=== PATIENT | female | born 2000 | race Caucasian/White ===

== ENCOUNTER 2022-05-19 15:10 | Inpatient (IN) | payer SELFPAY ==
[2022-05-19] VITALS (11 sets, daily range): BP systolic 104–129; BP diastolic 54–73; PULSE 57–75; TEMP 97.8–98.2
[~2022-05-19] VITALS: Ht 162.6 cm; Wt 65.9 kg
--- NOTE | 2022-05-19 15:21 | NUR ---
Presents to L&D for spontaneous labor. Note patient visibly uncomfortable, speaks no Somali. Per her records her language is icelandic. Will obtain access to hourly sign language interpreter service.
--- NOTE | 2022-05-19 15:25 | NUR ---
Initial SVE 6-7/90/0, note clear fluid leaking with exam.
--- NOTE | 2022-05-19 15:35 | NUR ---
Involuntary pushing efforts noted.
--- NOTE | 2022-05-19 15:40 | NUR ---
Now speaking to patient through hospital telegraphic service dispatcher service. Patient reports SROM @ 1400. Denies any drug allergies, or any complications with previous deliveries. Reports she [place] of [place] 3 year [place], but that he does not see a doctor or mechanical insulator. Gives verbal consent for Hepatitis B, Erythromycin, and Vit. K. Declines epidural.
--- NOTE | 2022-05-19 15:50 | NUR ---
Repeat SVE, after patient continues involuntary pushing efforts despite instruction to try not to. called to come to hospital for delivery @ 4759.
--- NOTE | 2022-05-19 16:07 | NUR ---
here for delivery.
--- NOTE | 2022-05-19 16:11 | NUR ---
Spontaneous delivery of head by , shoulders rapidly follow. Spontaneous vaginal delivery of female infant at 1611. Note parts interpreter remains online entire time through delivery and after.
--- NOTE | 2022-05-19 16:13 | NUR ---
Spontaneous vaginal delivery of placenta by . Pit bolus begun immediately following @ 333mU/min. 2nd degree laceration repaired under local anesthetic administered by with 2-[address]-1. Patient tolerates well.
[2022-05-19 16:36] LABS: BASO % 0.4 % (0.0-2.0); EOS # 0.1 K/mm3 (0.0-0.7); EOS % 0.7 % (0.0-4.0); GRAN # 7.1 K/mm3 (1.4-6.5); GRAN % 71.6 % (42.2-75.2); HEMOGLOBIN 13.1 g/dl (12.5-16.0); LYMPH # 1.9 K/mm3 (1.2-3.4); LYMPH % 19.1 % (20.0-51.0); MEAN CELL VOLUME 83 fl (80.0-100.0); MEAN CORPUSCULAR HEMOGLOBIN 29 pg (27-31); MEAN CORPUSCULAR HGB CONC 35 g/dl (33.0-37.0); MEAN PLATELET VOLUME 12.4 fl (7.4-10.4); MONO # 0.8 K/mm3 (0.1-0.6); MONO % 7.5 % (1.7-9.3); PLATELET COUNT 192 K/mm3 (130-400); RED BLOOD COUNT 4.56 M/mm3 (4.10-5.30); REDCELL DISTRIBUTION WIDTH-CV 12.8 % (11.5-14.5)
--- NOTE | 2022-05-19 17:30 | NUR ---
Power Checker used for consents. Attempt to go into more detail on patient history but labor relations consultant line not working.
[2022-05-20] VITALS: BP 114/68; PULSE 51; TEMP 98.1
[2022-05-20 01:30] LABS: TRICYCLIC ANTIDEPRESS URINE NEGATIVE
[2022-05-20 04:00] VITALS: BP 96/53; PULSE 60; TEMP 98.1
--- NOTE | 2022-05-20 06:47 | NUR ---
REPORT RECIEVED FROM OFF GOING RN,CARE TAKEN OVER BY THIS RN. WHEN IN ROOM FOR BEDSIDE REPORT, IT WAS NOTED PATIENT WAS DOOZING OFF IN BED WITH INFANT. PATIENT REMINDED, IN SCOTTISH, BY OFF GOING RN, GINA, THAT BABY NEEDS TO BE IN CRIB IF PATIENT IS GOING TO SLEEP. PATIENT VERBALIZED UNDERSTANDING.
[2022-05-20 07:45] VITALS: BP 96/69; PULSE 70; TEMP 97.8
--- NOTE | 2022-05-20 08:06 | NUR ---
ASSESSMENT AND VITAL SIGNS COMPLETED, MEDICAIONS GIVEN USING HOSPITAL APPROVED ONCOLOGY NURSE NAVIGATOR SERVICES. PATIENT VERBALIZES DESIRE TO BE DISCHARGED TODAY IF ABLE.
--- NOTE | 2022-05-20 12:36 | NUR ---
baking factory worker met with vanessa to complete the initial intake. Worker utilized the [employer] interpreting device as patient is tongan speaking only. Patient communicated that she has only been in [place] for 2 months and did not have pre dang care. Patient does not have insurance. Patient stated that she lives with her mother and confirmed address of [address] [place] and telephone of [phone]. Patient states that she has a 3 year old child that is in the care of her mother and that the father of is not involved. Patient states she will breast feed and bottle feed and has needed supplies, including a car seat that her friend, Marlene, is purchasing. Patient stated that Marlene will pick her and baby up this date for discharge. Worker provided Resource guide that includes [employer] transportation and will plan to meet with Marlene and patient prior to discharge to confirm resources. Patient was positive for oxycodone, however, nursing advises that patient was given a percocet during delivery.
--- NOTE | 2022-05-20 12:51 | NUR ---
market research worker utilized Matheus bonilla, session # [id number].
--- NOTE | 2022-05-20 17:45 | NUR ---
Using a link trainer, discharge instructions and follow up care reviewed. Pt verbalized an understanding, agreed with the plan and states no questions or concerns at this time.
--- NOTE | 2022-05-20 17:50 | NUR ---
Naheed from [facility] here to assist with discharge home and with car seat. Naheed states her and Marlene from the health department will assist with follow up care.
== END 2022-05-20 17:50 | disposition home or self-care (01) | DRG 807 ==
LOC: LDRO 15:10 → OB 15:29 → LDR 15:29 → OB 18:30
PROVIDERS: Obstetrics & Gynecology; ADMIT Obstetrics & Gynecology
PROC: 10E0XZZ Delivery of Products of Conception, External Approach (ICD-10-PCS; principal; 2022-05-19)
PROC: 0KQM0ZZ Repair Perineum Muscle, Open Approach (ICD-10-PCS; 2022-05-19)
DX: O48.0 Post-term pregnancy (principal); Z37.0 Single live birth; O70.1 Second degree perineal laceration during delivery; Z3A.40 40 weeks gestation of pregnancy
CPT/HCPCS: J2590; J7120